=== PATIENT | male | born 1945 ===

== ENCOUNTER 2024-09-12 17:44 | Emergency (ER) | payer MEDICARE, SELFPAY ==
[2024-09-12 18:05] VITALS: BP 159/67; PULSE 80; RESP 16; TEMP 37.2; O2SAT 96; BMI 35.2
--- NOTE | 2024-09-12 18:19 | DI.CT.S_ITS ---
PROCEDURE: CT CERVICAL SPINE WO CON INDICATIONS: fall into boat, hit head, LAC to forehead, neck surg t-2yr TECHNIQUE: Noncontrast 3 mm thick sections acquired from the skull base to the T4 level. Sagittal and coronal reformats were then constructed. For radiation dose reduction, the following was used: automated exposure control, adjustment of mA and/or kV according to patient size. COMPARISON: [facility], CT, CT HEAD/BRAIN WO CON, 09/12/2024, 18:29. FINDINGS: Image quality: This examination is somewhat limited by quantum mottle artifact. Bones: No fractures or dislocations. Visualized superior ribs are intact. Focal degenerative change is seen involving the C1-C2 interface anteriorly. Moderate disc space narrowing can be seen at C3-C4 and C5-C6, with moderate to severe disc space narrowing seen at C6-C7. Several levels of bridging anterior osteophytes can be seen. Multiple levels of facet hypertrophy can be seen. Soft tissues: Prevertebral soft tissues are normal in thickness. No paravertebral hematomas. No apical pneumothoraces. Atherosclerotic calcification is noted. IMPRESSION: No displaced fracture or traumatic subluxation. Multiple levels of cervical spine degenerative change can be seen, which are worst inferiorly. Dictated by: Waldo Mccarthy M.D. on 09/12/2024 at 17:58 Approved by: Waldo Mccarthy M.D. on 09/12/2024 at 17:59
--- NOTE | 2024-09-12 18:19 | DI.CT.S_ITS ---
PROCEDURE: CT HEAD/BRAIN WO CON INDICATIONS: fall into boat, hit head, neck surg T-2yr TECHNIQUE: Noncontrast 4.5 mm thick angled axial sections acquired from the foramen magnum to the vertex, with coronal and sagittal reformats. For radiation dose reduction, the following was used: automated exposure control, adjustment of mA and/or kV according to patient size. COMPARISON: [facility], CT, CT CERVICAL SPINE WO CON, 09/12/2024, 18:29. FINDINGS: Image quality: Diagnostic. CSF spaces: Basal cisterns are patent. No extra-axial fluid collections. The ventricles are symmetric in size and shape. Brain: No intracranial bleeds or mass effect. There is cerebral volume loss, with resultant ventricular and sulcal prominence. There are periventricular and deep white matter chronic small vessel ischemic changes. There is intracranial internal carotid artery atherosclerosis. Skull and face: Calvarium and visualized facial bones appear intact, without suspicious lesions. Sinuses: Visualized sinuses and mastoids are clear. IMPRESSION: No acute intracranial hemorrhage is seen. No acute intracranial pathology. Dictated by: Waldo Mccarthy M.D. on 09/12/2024 at 17:57 Approved by: Waldo Mccarthy M.D. on 09/12/2024 at 17:58
[2024-09-12 20:52] VITALS: BP 189/75; PULSE 76; O2SAT 96
[2024-09-12 21:00] VITALS: BP 148/68; PULSE 69; O2SAT 97
--- NOTE | 2024-09-12 21:25 | ED.FALL ---
HPI - Fall General Chief Complaint: Fall Stated Complaint: GLF Time Seen by Provider: 09/12/24 17:48 History of Present Illness HPI Narrative: 79-year-old gentleman history of back surgeries tying his boat when he hit his head against the but floor but had no loss of consciousness. He is not on any blood. He denies nausea, vomiting, chest pain, shortness of breath, dizziness, blurred vision, neck pain, back pain, bowel or bladder incontinence, numbness or tingling down the lower back or gait instability. Related Data Home Medications ?Medication ?Instructions ?Recorded ?Confirmed amlodipine 10 mg tablet 10 mg PO DAILY 09/12/24 09/12/24 atorvastatin 40 mg tablet 40 mg PO BEDTIME 09/12/24 09/12/24 doxazosin 4 mg tablet (Cardura) 4 mg PO BID 09/12/24 09/12/24 empagliflozin 10 mg tablet 10 mg PO DAILY 09/12/24 09/12/24 (Jardiance) furosemide 20 mg tablet (Lasix) 20 mg PO DAILY 09/12/24 09/12/24 lisinopril 40 mg tablet 40 mg PO DAILY 09/12/24 09/12/24 nortriptyline 50 mg capsule 50 mg PO BEDTIME 09/12/24 09/12/24 oxycodone 5 mg tablet 5 mg PO Q12H 09/12/24 09/12/24 semaglutide 0.25 mg or 0.5 mg (2 0.5 mg SUBCUT QWEEK 09/12/24 09/12/24 mg/3 mL) subcutaneous pen injector (Ozempic) Allergies Allergy/AdvReac Type Severity Reaction Status Date / Time cefdinir AdvReac Verified 09/12/24 18:13 Review of Systems Review of Systems ROS Unobtainable: All systems reviewed & are unremarkable except as noted in HPI and below Exam Narrative Exam Narrative: GENERAL: [79] year old patient appears stated age. Well-developed patient, in mild distress. HEAD: Atraumatic. Normocephalic. EYES: Pupils equal round and reactive. Extraocular motions intact. No scleral icterus. No injection or drainage. ENT: Nose without bleeding, purulent drainage. Throat without erythema, tonsillar hypertrophy or exudate. Airway patent. NECK: Trachea midline. Non tender CARDIOVASCULAR: Regular rate and rhythm without murmurs, gallops, or rubs. RESPIRATORY: Clear to auscultation. Breath sounds equal bilaterally. No wheezes, rales, or rhonchi. GASTROINTESTINAL: Abdomen soft, non-tender, nondistended. EXTREMITIES: No edema or joint tenderness. BACK: Nontender without deformity or crepitance. No flank tenderness. NEURO: AOx3. GCS 15 nonfocal neuro exam SKIN: No rash or erythema of visible areas Initial Vital Signs Initial Vital Signs: Vital Signs Temperature 98.9 F 09/12/24 18:05 Pulse Rate 80 09/12/24 18:05 Respiratory Rate 16 09/12/24 18:05 Blood Pressure 159/67 H 09/12/24 18:05 Pulse Oximetry 96 09/12/24 18:05 Oxygen Delivery Method Room Air 09/12/24 18:05 Procedures Laceration Repair Laceration 1: Time of procedure: 21:41 Site: scalp Size (cm): 4 Description: linear Depth: simple, single layer Local Anesthetic: lidocaine 1% and with epi Amount of anesthesia used (mL): 4 Skin layer closed with: other (sylvia) Number of sutures: 6 Course Orders Ordered: ED Orders 09/12/24 18:19 CT cervical spine wo con Stat CT head/brain wo con Stat Discontinued Medications Diphtheria/Tetanus/Acell Pertussis (Tet,Diph,Pertuss(Acell),Vac/Pf 0.5 Ml Syringe) 0.5 ml IM .ONCE ONE Stop: 09/12/24 18:21 Vital Signs Vital signs: Vital Signs - 8 hr 09/12/24 18:05 09/12/24 20:52 09/12/24 20:52 Temperature 98.9 F Pulse Rate 80 76 Respiratory Rate 16 Blood Pressure 159/67 H 189/75 H Pulse Oximetry 96 96 Oxygen Delivery Method Room Air MDM - Fall Imaging Data CT scan - head: Radiologist's Impression: [address] [address] [address] Scan Report Signed Patient: Faizan Barone MR#: [id number] : 1945 Acct:[id number] Age/Sex: 79 / M Date of Service: 09/12/24 Loc: ED Accession Number: [id number] Procedure: CT head/brain wo con Ordering Provider: Nehemiah Kapoor D.O. PROCEDURE: CT HEAD/BRAIN WO CON INDICATIONS: fall into boat, hit head, neck surg T-2yr TECHNIQUE: Noncontrast 4.5 mm thick angled axial sections acquired from the foramen magnum to the vertex, with coronal and sagittal reformats. For radiation dose reduction, the following was used: automated exposure control, adjustment of mA and/or kV according to patient size. COMPARISON: [facility], CT, CT CERVICAL SPINE WO CON, 09/12/2024, 18:29. FINDINGS: Image quality: Diagnostic. CSF spaces: Basal cisterns are patent. No extra-axial fluid collections. The ventricles are symmetric in size and shape. Brain: No intracranial bleeds or mass effect. There is cerebral volume loss, with resultant ventricular and sulcal prominence. There are periventricular and deep white matter chronic small vessel ischemic changes. There is intracranial internal carotid artery atherosclerosis. Skull and face: Calvarium and visualized facial bones appear intact, without suspicious lesions. Sinuses: Visualized sinuses and mastoids are clear. IMPRESSION: No acute intracranial hemorrhage is seen. No acute intracranial pathology. CT - cervical spine: Radiologist's Impression: [place] [address] CT Scan Report Signed Patient: Faizan Barone MR#: [id number] : 1945 Acct:[id number] Age/Sex: 79 / M Date of Service: 09/12/24 Loc: ED Accession Number: [id number] Procedure: CT cervical spine wo con Ordering Provider: Nehemiah Kapoor D.O. PROCEDURE: CT CERVICAL SPINE WO CON INDICATIONS: fall into boat, hit head, LAC to forehead, neck surg t-2yr TECHNIQUE: Noncontrast 3 mm thick sections acquired from the skull base to the T4 level. Sagittal and coronal reformats were then constructed. For radiation dose reduction, the following was used: automated exposure control, adjustment of mA and/or kV according to patient size. COMPARISON: [facility], CT, CT HEAD/BRAIN WO CON, 09/12/2024, 18:29. FINDINGS: Image quality: This examination is somewhat limited by quantum mottle artifact. Bones: No fractures or dislocations. Visualized superior ribs are intact. Focal degenerative change is seen involving the C1-C2 interface anteriorly. Moderate disc space narrowing can be seen at C3-C4 and C5-C6, with moderate to severe disc space narrowing seen at C6-C7. Several levels of bridging anterior osteophytes can be seen. Multiple levels of facet hypertrophy can be seen. Soft tissues: Prevertebral soft tissues are normal in thickness. No paravertebral hematomas. No apical pneumothoraces. Atherosclerotic calcification is noted. IMPRESSION: No displaced fracture or traumatic subluxation. Multiple levels of cervical spine degenerative change can be seen, which are worst inferiorly. MDM Narrative Medical decision making narrative: All lab work, vital signs, nurse triage note, medication list, previous ER visits, and all imaging studies reviewed. CT head and cervical spine showed no acute process but multilevel cervical spine degenerative changes which are worst inferiorly. [place] placed. Tetanus updated on today's visit. Differential diagnosis includes subdural hemorrhage, laceration, aneurysm, fracture, dislocation, 7 sylvia placed. Bacitracin ointment applied. Discharge Plan Departure Patient Disposition: Home Clinical Impression: Laceration of scalp Qualifiers: Encounter type: initial encounter Qualified Code(s): S01.01XA - Laceration without foreign body of scalp, initial encounter Fall Qualifiers: Encounter type: initial encounter Qualified Code(s): W19.XXXA - Unspecified fall, initial encounter Activity Restrictions/Additional Instructions: Return with new or worsening symptoms. Follow up PCP for staple removal Prescriptions: No Action amlodipine 10 mg tablet 10 mg PO DAILY atorvastatin 40 mg tablet 40 mg PO BEDTIME doxazosin [Cardura] 4 mg tablet 4 mg PO BID Jardiance 10 mg tablet 10 mg PO DAILY furosemide [Lasix] 20 mg tablet 20 mg PO DAILY Ozempic 0.25 mg or 0.5 mg (2 mg/3 mL) pen injector 0.5 mg SUBCUT QWEEK lisinopril 40 mg tablet 40 mg PO DAILY nortriptyline 50 mg capsule 50 mg PO BEDTIME oxycodone 5 mg tablet 5 mg PO Q12H Stand Alone Forms: Patient Portal/API
[2024-09-12] MEDS: TET,DIPH,PERTUSS(ACELL),VAC/PF 0.5 ML SYRINGE IM (21:29)
[2024-09-12] MEDS: LIDOCAINE 1% W/EPI 10ML 4 ML INJ (21:39)
[2024-09-12] MEDS: BACITRACIN OINT 0.9 GM PCKT 1 APPLIC TOP (21:52)
[2024-09-12 21:53] VITALS: O2SAT 96
[2024-09-12 21:55] VITALS: BP 160/66; PULSE 71; O2SAT 95
== END 2024-09-12 22:00 | disposition home or self-care (01) ==
PROVIDERS: Emergency Provider Family Medicine
DX: S01.01XA Laceration without foreign body of scalp, initial encounter (principal); W18.30XA Fall on same level, unspecified, initial encounter; Z23 Encounter for immunization
CPT/HCPCS: 12002; 70450; 72125; 90471; 99283; 99284; 90715